=== PATIENT | male | born 1990 | race Caucasian/White ===

== ENCOUNTER 2018-01-20 14:23 | Inpatient (IN) | payer BC, OTHER ==
[~2018-01-20] VITALS: Ht 165.1 cm; Wt 63.5 kg
--- NOTE | 2018-01-20 20:00 | NUR ---
INTAKE ASSESSMENT BP: 108/61, HR:67, RR:16, SpO2: 99% T:98.1 Pt is stable and is able to be admitted on the unit. Unit protocols regarding vitals signs Q4H and medications were explained. Pt verbalized understanding. Will continue admission upon arrival on the unit.
[2018-01-20] MEDS ORDERED: MIRALAX 17 GM POWD.PACK PO PRN (21:00)
[2018-01-20] MEDS ORDERED: METHOCARBAMOL 750 MG TABLET PO PRN (21:00)
[2018-01-20] MEDS ORDERED: DICYCLOMINE HCL 20 MG TABLET PO PRN (21:00)
[2018-01-20] MEDS ORDERED: ACETAMINOPHEN 325 MG TABLET PO PRN (21:00)
[2018-01-20] MEDS ORDERED: diphenhydrAMINE 50 MG CAPSULE PO PRN (21:00)
[2018-01-20] MEDS ORDERED: 3 DAY TAPER BUPRENORPHINE -SERENITY PROTOCOL SL PRN (21:00)
[2018-01-20] MEDS ORDERED: ONDANSETRON ODT 4 MG TAB.RAPDIS SL PRN (21:00)
[2018-01-20] MEDS ORDERED: IBUPROFEN 400 MG TABLET PO PRN (21:00)
[2018-01-20] MEDS ORDERED: MAGNESIUM HYDROXIDE 30 ML LIQUID UDC PO PRN (21:00)
[2018-01-20] MEDS ORDERED: MAG HYDROX/AL HYDROX/SIMETH 30 ML LIQUID UDC PO PRN (21:00)
[2018-01-20] MEDS ORDERED: ONDANSETRON 4 MG/2 ML VIAL IM PRN (21:00)
[2018-01-20] MEDS ORDERED: CLONIDINE HCL 0.1 MG TABLET PO PRN (21:00)
[2018-01-20] MEDS ORDERED: BUPRENORPHINE HCL 2 MG TAB.SUBL SL PRN (21:00)
[2018-01-20] MEDS ORDERED: HYDROXYZINE PAMOATE 25 MG CAPSULE PO PRN (21:00)
[2018-01-20] MEDS ORDERED: LOPERAMIDE HCL 2 MG CAPSULE PO PRN ×2 (21:00)
--- NOTE | 2018-01-20 21:00 | NUR ---
ADMISSION NOTE---312 HT=5 FEET ; 5 INCHES. WT = 140 POUNDS. B/P=108/61, T=97.8,P=67,R=16,O2 SAT=99%. NKDA /NKFA Admitting 27 y/o male to [facility] for medically supervised withdrawal from Opiates.Pt stated that he has been smoking 0.2 grams of Heroin on a daily basis for the past 8 months.He last smoked 0.2 grams of Heroin at 1100 today.Pt appears to be intoxicated,no c/o pain or distress noted,unable to assess for COWS at this time.Pt stated that he was in a rehab program in March 2017,he stayed there for one month;after that was sober for 2 weeks then relapsed due to cravings, family pressure,work and financial problems.Pt stated that last time he was in treatment because of his family;he was not fully ready to detox then.But this time he is here because he wants to do it for himself;he wants to stop smoking Heroin and make his life better by finishing his college and improving his life.His longest period of sobriety was for one month while he was in treatment and 2 weeks after that.Pt does not have a Psychiatrist,Psychologist or PCP. PHYSICAL ASSESSMENT Pt is A/A/O x 4,lives with his family in [place] and works in a construction company.Skin is intact,warm and dry to touch; lungs are clear to auscultation bilaterally,no c/o SOB/wheezing noted; abdomen is soft and palpable with b/s present in all 4 quadrants;no c/o N/V/D /C N noted, pt reported having a bowel movement today. PHYSICAL HX Pt denies having any medical problems.No c/o pain or distress noted.Pt has no known allergies to food or medications.Pt does not take any medications at home. No hx of seizures noted.Pt denies any withdrawal-induced delirium or cardiac complications.No hx of overdose reported. PSYCHIATRIC HX Pt reports having history of anxiety and depression but has never seen any Psychiatrist and has never taken any medications for anxiety or depression.Pt denies having any suicidal or homicidal ideations.No hx of 5150,psych hospitalization or suicidal ideation/attempt noted.No legal issues reported. PT DOES NOT TAKE ANY MEDICATIONS AT HOME. TREATMENT HX Pt reports being in treatment for one month from March to April in 2017 in a treatment center in [place]. This is his second attempt. He states it is going to be different this time because this time he wants to do it for himself. Pt oriented to room and unit, unit rules and regulations explained,pt verbalizes understanding.Care plan and safety checks initiated.Education material provided.MD notified.Will continue to monitor for safe withdrawals. Addendum: 01/21/18 at 0750 by MARIA LUZ MARSH RN Pt's drug screen is positive Opiates,Amphetamines and Cannabinoids.Pt stated that his usual withdrawal symptoms include anxiety,restlessness,hot and cold sweats tremors and craving for the drugs.He began using Heroin when he was 23 years old,started using occasionally with smaller quantity but over the 4 years period he began using daily with increasing amount and is currently using 0.2 grams daily.
[2018-01-20 21:55] LABS: *AMPHETAMINE, URINE POSITIVE (NEGATIVE); *BARBITURATE, URINE NEGATIVE (NEGATIVE); *CANNABINOID, URINE POSITIVE (NEGATIVE); *COCCAINE, URINE NEGATIVE (NEGATIVE); *OPIATE, URINE POSITIVE (NEGATIVE); *PHENCYCLIDINE SCREEN,URINE NEGATIVE (NEGATIVE)
[2018-01-20 23:29] LABS: BASOPHILS # (AUTO) 0.1 K/uL (0.0-8.0); BASOPHILS % (AUTO) 0.9 % (0.0-2.0); EOSINOPHILS # (AUTO) 0.4 K/uL (0.0-0.7); EOSINOPHILS % (AUTO) 6.3 % (0.0-7.0); HEMATOCRIT 44.2 % (36.7-47.1); HEMOGLOBIN 15.1 g/dL (12.5-16.3); MEAN CORPUSCULAR HEMOGLOBIN 31.3 uug (23.8-33.4); MEAN CORPUSCULAR HGB CONC 34 g/dL (32.5-36.3); MEAN CORPUSCULAR VOLUME 91.7 fL (73.0-96.2); MONOCYTES # (AUTO) 0.6 K/uL (2.0-10.0); MONOCYTES % (AUTO) 9.3 % (0.0-11.0); NEUTROPHILS # (AUTO) 2.9 K/uL (1.8-8.9); NEUTROPHILS % (AUTO) 49.5 % (38.5-71.5); PLATELET COUNT (AUTO) 193 K/uL (152-348); RED BLOOD CELL COUNT(AUTO) 4.82 MIL/uL (4.06-5.63); WHITE BLOOD COUNT (AUTO) 5.9 K/uL (3.6-10.2)
[2018-01-20 23:47] LABS: ALANINE AMINOTRANSFERASE 41 U/L (16-63); ALKALINE PHOSPHATASE 83 U/L (50-136); AMYLASE 57 U/L (25-115); ASPARTATE AMINOTRANSFERASE 22 U/L (15-37); BILIRUBIN,TOTAL 0.3 mg/dL (0.2-1.0); CARBON DIOXIDE 29 mmol/L (21-32); CHLORIDE 106 mmol/L (98-107); CREATININE 0.8 mg/dL (0.6-1.3); GLUCOSE 94 mg/dL (74-106); LIPASE 254 U/L (73-393); POTASSIUM 4.2 mmol/L (3.5-5.1); TOTAL PROTEIN, SERUM 6.3 g/dL (6.4-8.2); UREA NITROGEN, BLOOD 12 mg/dL (7-18)
[2018-01-21] VITALS: BP 113/66
--- NOTE | 2018-01-21 | NUR ---
COWS DEFERRED Pt is sleeping in bed,breathing is even and non labored,no c/o pain or s/s of distress noted; v/s are stable.COWS deferred due to pt being asleep, will continue to monitor.
[2018-01-21 00:05] LABS: ETHANOL < 3 MG/DL (0-0)
[2018-01-21] MEDS ORDERED: CLOT30SO2 TP (01:12)
[2018-01-21 04:00] VITALS: BP 115/87
--- NOTE | 2018-01-21 07:16 | NUR ---
END OF SHIFT Pt slept all night without any problem,unable to assess for COWS due to Pt being asleep.No PRN meds given last night.Pt slept 9 hours,fluid intake was 500 mls,voided x 1.Pt endorsed to AM shift nurse in a stable condition.
--- NOTE | 2018-01-21 07:30 | NUR ---
Start of Shift Peanut Cleaner received report on 27 year old male admitted to [facility] on 01/20/18 for medical management of Heroin withdrawals. Pt endorses a full code and NKA, with regular diet. Denies PMH and endorses PPH of anxiety and depression. Pt has had no COWS recorded per NOC. Pt scheduled to start Subutex taper this morning. Pt was not administered any PRN medications on NOC, per report. Pt tested positive for methamphetamines as well as Opiates and requires follow-up to determine extent of methamphetamine use. Peanut Cleaner encounters pt in pts room resting with eyes closed. Rise and fall of chest noted, with even and unlabored respirations. Bed in low position with wheels locked and side rails up x2. Will continue to monitor, support and encourage according to plan of care.
[2018-01-21 08:59] VITALS: BP 113/71
[2018-01-21] MEDS: MULTIVITAMINS,THERAPEUTIC TABLET PO SCH (09:00)
[2018-01-21] MEDS ORDERED: BUPRENORPHINE HCL 2 MG TAB.SUBL SL SCH (09:00)
[2018-01-21] MEDS ORDERED: TUBERCULIN,PURIF.PROT.DERIV. 5 TU/0.1 ML TEST ID ONE (09:00)
--- NOTE | 2018-01-21 09:00 | NUR ---
0800 COWS Deferred Cleaner Wall deferred pt's assessment due to somnolence and lethargy. Pt unable to participate in assessment. Will continue to monitor, support and encourage according to plan of care.
--- NOTE | 2018-01-21 10:00 | NUR ---
Non-administered Subutex Quality Assurance Coordinator non-administered medication due to pt's inability to participate in assessment due to lethargy and somnolence. No recorded COWS to radio news writer against and pt with no immediate complaints. CRN aware. Will continue to monitor, support and encourage according to plan of care.
--- NOTE | 2018-01-21 12:00 | NUR ---
COWS 9 Perfume Compounder assessed pt for first COWS prior to administration of Subutex. Pt is calm and cooperative and able to make his needs known. Pt is anxious and restless. Pt with complaints of nausea, muscle aches and chills. Pt denies need for Subutex. States he last withdrew 1 month ago and known what the withdrawal feels like. States, " I am doing well, no need for Subutex now." MD made aware and will continue to monitor, support and encourage according to plan of care.
--- NOTE | 2018-01-21 12:00 | NUR ---
Methamphetamine Usage Clarification Pt endorses occasional use of meth, " I smoke a couple of hits every few months." Pt endorses last usage two or three days prior to admission to [facility] and states, " a couple hits." Will continue to monitor, support and encourage according to plan of care.
[2018-01-21 12:19] VITALS: BP 109/57
--- NOTE | 2018-01-21 16:45 | NUR ---
COWS 8 Pt is anxious and restless, complaints of muscle discomfort, chills and nausea. Pt with palpable tremors. Will continue to monitor, support and encourage according to plan of care.
[2018-01-21 17:03] VITALS: BP 114/71
--- NOTE | 2018-01-21 18:44 | NUR ---
End of Shift Adult Daycare Coordinator provided report on 27 year old male admitted to [facility] on 01/20/18 for medical management of Heroin withdrawals. Pt endorses a full code and NKA, with regular diet. Denies PMH and endorses PPH of anxiety and depression. Pt was to start on Subutex taper today, 0900 mi'kmaq held due t osleep. When pt was re-assessed pt stated he did not believe pt was in need of medication. Pt is anxious and restless, complains of chills and muscle spasms, initial COWS 9(last COWS 8, 1630). made aware of pts refusal and re-assessed pt, with a decision to discharge pt tomorrow to [facility] RTC. Pt is in agreement and excited to be discharging and going to treatment. Pt has a linear thought process and clear speech pattern. Normal affect and congruent mood. Bed in low position with wheels locked and side rails up x2.
--- NOTE | 2018-01-21 18:58 | NUR ---
START OF SHIFT NOTE The patient, 27 year old male, alert and oriented x4, cooperative, with soft and clear speech, steady gait. Mood anxious, flat affect. Withdrawal symptoms will be closely monitoring. The patient non -compliant with scheduled Subutex Taper, ordered for Opioid withdrawal, verbalized," I don't think that I needed Subutex". Per day shift nurse report, notified, and patient scheduled for discharging tomorrow to [facility]. Latest COWS=8 at 1630. During the day shift patient noted with withdrawal symptoms such as anxiety, agitation, irritability, nervousness, generalized body aches, tremors, restlessness, sweating, and fatigue. Encouraged fluids intake as tolerated. Encouraged to attended group activities. Safe and calm environment with minimized noises was provided. All needs met. Safety measures: Call light within reach, bed locked in the lowest position, and padded rails up x2. Will continue to monitor closely. Endorsed by outgoing day shift nurse.
[2018-01-21 20:00] VITALS: BP 112/66
--- NOTE | 2018-01-21 20:00 | NUR ---
COWS ASSESSMENT COWS=8. The patient appears with anxious mood and flat affect, anxiety, agitation, irritability, nervousness, sweating, tremors that can be felt, restlessness, and fatigue. Safe and calm environment with minimized noises was provided. All needs met. Safety measures: Call light within reach, bed locked in the lowest position, and padded rails up x2. Will continue to monitor closely.
[2018-01-22] VITALS: BP 113/76
--- NOTE | 2018-01-22 | NUR ---
COWS ASSESSMENT COWS=8: The patient noted with anxiety, irritability, nervousness, sweating, tremors that can be felt, restlessness, and fatigue. Safe and calm environment with minimized noises was provided. All needs met. Safety measures: Call light within reach, bed locked in the lowest position, and padded rails up x2. Will continue to monitor closely.
[2018-01-22 04:00] VITALS: BP 107/64
--- NOTE | 2018-01-22 04:00 | NUR ---
COWS ASSESSMENT COWS=9: The patient appears with anxiety, irritability, sweating, tremors that can be felt, nasal congestion, and restlessness. Safe and calm environment with minimized noises was provided. All needs met. Safety measures: Call light within reach, bed locked in the lowest position, and padded rails up x2. Will continue to monitor closely.
--- NOTE | 2018-01-22 07:07 | NUR ---
END OF SHIFT NOTE Endorsed patient, 27 year old male, presented in [facility] for Opioid withdrawal, and scheduled for discharging today to [facility]. He is A&Ox4, cooperative, with soft, clear speech, and steady gait. Initial COWS=8 at 2000, COWS=8 at 0000. Most recent Latest COWS=9 at 0400: Throughout shift manager patient noted with following withdrawal symptoms such as anxiety, agitation, irritability, nervousness, tremors, restlessness, sweating, and fatigue. No PRN Medications administrated during shift manager. Encouraged fluids intake as tolerated. Encouraged to attended group activities. Calm and safety environment with minimized noises provided. Patient slept for 9 hours, intake 500 ml, voided x1. Encouraged to fluid intake as tolerated. All needs met. Safety measures: Call light within reach, bed is locked in lowest position, padded bed rails up x2. Endorsed to day shift nurse.
--- NOTE | 2018-01-22 07:45 | NUR ---
START OF SHIFT Pt is a 27 y/o M admitted for medically supervised opiate withdrawal. Pt is scheduled to be and is medically cleared to be discharged today. Pt is A/Ox4, respirations even and unlabored. Pt presents anxiety, agitation, sweating, fatigue, restlessness and tremors noted. Last COWS 9. Pt will be discharged to [facility]. Bed is on the lowest position with side rails x2 up and call light within reach. Safety measures in place. Will give endorsement to mine shifter nurse.
[2018-01-22 08:00] VITALS: BP 107/57
--- NOTE | 2018-01-22 08:00 | NUR ---
COWS assessment 6 Pt reports having anxiety, restlessness, and sweating. Pt states he is ready to be discharged.
[2018-01-22 08:06] LABS: HEPATITIS B SURFACE AG Negative (Negative)
[2018-01-22] MEDS: MULTIVITAMINS,THERAPEUTIC TABLET PO SCH (08:56)
[2018-01-22] MEDS ORDERED: BUPRENORPHINE HCL 2 MG TAB.SUBL SL SCH (09:00)
--- NOTE | 2018-01-22 09:36 | NUR ---
DISCHARGE NOTE Pt is in stable condition, VS wnl. Last COWS 6. Pt has been given discharge instructions and pt verbalized understanding. Pt left the building with all belongings, medications, and d/c paperwork. Pt has been taken to [facility] RTC and has been taken to [facility] transportation.
[2018-01-23] MEDS ORDERED: BUPRENORPHINE HCL 2 MG TAB.SUBL SL SCH (09:00)
== END 2018-01-22 09:36 | disposition other institution (70) | DRG 897 ==
LOC: SRC 19:29
PROVIDERS: ADMIT Family Medicine Addiction Medicine; ATTEND Family Medicine Addiction Medicine
PROC: HZ2ZZZZ Detoxification Services for Substance Abuse Treatment (ICD-10-PCS; principal; 2018-01-20)
DX: F11.23 Opioid dependence with withdrawal (principal); F15.282 Other stimulant dependence with stimulant-induced sleep disorder; F15.23 Other stimulant dependence with withdrawal; F17.210 Nicotine dependence, cigarettes, uncomplicated; F12.90 Cannabis use, unspecified, uncomplicated; F41.9 Anxiety disorder, unspecified; F32.9 Major depressive disorder, single episode, unspecified
CPT/HCPCS: 36415; 80307; 80324; 80349; 80361; 83690; 83735; 84443; 85025; 86592; 86705; 86803; 87340; 87806; A4663; G0480